=== PATIENT | female | born 1970 | race Caucasian/White ===

== ENCOUNTER 2020-01-05 11:55 | Emergency (ER) | payer MEDICAID ==
[2020-01-05 12:44] LABS: RAPID STREP SCREEN Negative (Negative)
--- NOTE | 2020-01-05 12:44 | ED Physician Documentation ---
PD HPI URI - Stated complaint Stated Complaint: SORE THROAT/FEVER - Chief complaint Chief Complaint: Heent - History obtained from History obtained from: Patient - History of Present Illness Timing - onset: Yesterday Timing duration: Days (2) Timing details: Gradual onset Pain level max: 0 Pain level now: 0 Associated symptoms: Fever (subjective), Nasal congestion, Rhinorrhea, Sore throat, Dry cough. No: Hemoptysis, Chest pain, Dyspnea, NVD Contributing factors: No: Travel, Immunocompromised, Unimmunized, COPD / asthma Improves by: Rest Worsened by: Activity, Breathing Recently seen: Not recently seen - Additional information Additional information: concerned about possible covid Review of Systems Constitutional: reports: Fever (subjective) Nose: reports: Rhinorrhea / runny nose, Congestion Skin: denies: Rash Musculoskeletal: denies: Neck pain, Back pain Neurologic: denies: Headache PD PAST MEDICAL HISTORY - Past Medical History Past Medical History: Yes GI: Hepatitis Psych: Depression, Anxiety, Schizophrenia, Panic attacks, Post traumatic stress disorder Other Past Medical History: Hep C - Past Surgical History Past Surgical History: Yes General: Other - Allergies Allergies/Adverse Reactions: Allergies Allergy/AdvReac Type Severity Reaction Status Date / Time Penicillins Allergy Unknown Verified 01/05/20 12:13 - Social History Does the pt smoke?: Yes Smoking Status: Current every day smoker Does the pt drink ETOH?: Yes ETOH Use: Wine Does the pt have substance abuse?: No - Immunizations Immunizations are current?: Yes - POLST Patient has POLST: No PD ED PE NORMAL - Vitals Vital signs reviewed: Yes - General General: Alert and oriented X 3, No acute distress, Well developed/nourished - HEENT HEENT: PERRL, Ears normal, Moist mucous membranes, Pharynx benign - Neck Neck: Supple, no meningeal sign, No adenopathy - Cardiac Cardiac: RRR, Strong equal pulses - Respiratory Respiratory: No respiratory distress, Clear bilaterally - Abdomen Abdomen: Soft, Non tender, Non distended - Derm Derm: Warm and dry, No rash - Extremities Extremities: No edema - Neuro Neuro: Alert and oriented X 3 - Psych Psych: Normal mood, Normal affect Results - Vitals Vitals: Vital Signs - 24 hr 01/05/20 01/05/20 12:08 12:16 Temperature 36.6 C 36.6 C Heart Rate 78 78 Respiratory 18 18 Rate Blood Pressure 102/55 L 102/55 L O2 Saturation 98 98 Oxygen O2 Source Room air PD MEDICAL DECISION MAKING - ED course Complexity details: reviewed results, re-evaluated patient, considered differential, d/w patient ED course: Patient is well-appearing, nontoxic. Afebrile. No hypoxia. No respiratory distress. Lungs are clear to auscultation bilaterally. No evidence of pneumonia clinically. Covid testing was performed and sent. We will have her follow-up with her doctor for further care. Patient counseled regarding signs and symptoms for which I believe and urgent re-evaluation would be necessary. Patient with good understanding of and agreement to plan and is comfortable going home at this time This document was made in part using voice recognition software. While efforts are made to proofread this document, sound alike and grammatical errors may occur. Departure - Departure Disposition: 01 Home, Self Care Clinical Impression: Viral upper respiratory infection Condition: Good Instructions: ED URI Viral Follow-Up: your,doctor as needed [Other] Comments: Return if you worsen. Your Covid test results should be available within 1 to 2 days. You should receive a phone call if they are positive. Follow-up with your doctor as needed for further care. You need to stay away from other people and self quarantine until your test results are back.
[2020-01-05 12:55] VITALS: BP 105/58
== END 2020-01-05 12:54 | disposition home or self-care (01) ==
LOC: ED 11:55
DX: J06.9 Acute upper respiratory infection, unspecified (principal); Z20.828 Contact with and (suspected) exposure to other viral communicable diseases; F17.200 Nicotine dependence, unspecified, uncomplicated; B19.20 Unspecified viral hepatitis C without hepatic coma
CPT/HCPCS: 87070; 87430; 99282; 99283

== ENCOUNTER 2020-06-09 02:05 | Emergency (ER) | payer MEDICAID ==
--- NOTE | 2020-06-09 03:31 | ED Physician Documentation ---
PD HPI MHE - Stated complaint Stated Complaint: MHE - Chief complaint Chief Complaint: MHE - History obtained from History obtained from: Patient - History of Present Illness Primary symptom: Other (see narrative below) - Additional information Additional information: patient presents to ED by private vehicle (drove self to ED). She reportedly went to triage desk and said someone had been following her and threatening her. She then left ED waiting area but subsequently returned and registered to be evaluated. On my HPI, patient is initially reluctant to talk to me. She requests discharge and tells me she feels fine. She eventually tells me that she was driving and perceived that someone in another vehicle was following her and that she felt threatened by this person's actions. I ask if she is certain someone was actually following her and she answers in the affirmative. She does not provide much other detail and again requests discharge home. I d/w patient that she has one previous ED visit, last year for COVID concerns, and that the ED chart indicates she has a h/o schizophrenia. She acknowledges that she has "mental health issues" (per patient), but says she is taking her medications as prescribed and she insists she was not hallucinating nor having delusions tonight. She denies SI/HI/AH/VH. She refuses physical exam aside from brief pupil exam Review of Systems Unable to obtain: Other (limited, as patient answers few of my questions, mostly redirects conversation to request to be discharged) Neurologic: denies: Headache Psychiatric: denies: Depressed, Suicidal PD PAST MEDICAL HISTORY - Past Medical History GI: Hepatitis Psych: Depression, Anxiety, Schizophrenia, Panic attacks, Post traumatic stress disorder - Past Surgical History Past Surgical History: Yes General: Other - Present Medications Home Medications: Ambulatory Orders Medication Instructions Recorded Confirmed Albuterol Sulfate [Proair 90 mcg IH 06/09/20 Respiclick] Alprazolam [Xanax Xr] 2 mg PO BID 06/09/20 06/09/20 Buprenorphine HCl/Naloxone HCl 2.5 film SL DAILY 06/09/20 06/09/20 [Suboxone 8 mg-2 mg Sl Film] Divalproex ER [Depakote ER] 250 mg PO DAILY 06/09/20 06/09/20 Risperidone [Risperdal] 2 mg PO DAILY 06/09/20 06/09/20 traZODone [Desyrel] 100 mg PO HS 06/09/20 06/09/20 - Allergies Allergies/Adverse Reactions: Allergies Allergy/AdvReac Type Severity Reaction Status Date / Time Penicillins Allergy Unknown Verified 01/05/20 12:13 - Social History Does the pt smoke?: Yes Smoking Status: Current every day smoker Does the pt drink ETOH?: Yes Does the pt have substance abuse?: No - Immunizations Immunizations are current?: Yes - POLST Patient has POLST: No PD ED PE NORMAL - Vitals Vital signs reviewed: Yes - General General: Alert and oriented X 3, No acute distress, Well developed/nourished - HEENT HEENT: PERRL - Neuro Neuro: Alert and oriented X 3 Eye Opening: Spontaneous Motor: Obeys Commands Verbal: Oriented GCS Score: 15 PD ED PE EXPANDED - Psych Psych: No: Tearful, Withdrawn, Agitated, Combative, Manic, Pressured speech Results - Vitals Vitals: Vital Signs - 24 hr 06/09/20 06/09/20 02:21 05:00 Temperature 36.9 C 36.7 C Heart Rate 91 87 Respiratory 16 16 Rate Blood Pressure 131/76 H 126/81 H O2 Saturation 99 97 Oxygen O2 Source Room air - Labs Labs: Laboratory Tests 06/09/20 04:40 Urine Color YELLOW Urine Clarity CLEAR Urine pH 6.0 Ur Specific [place] 1.025 Urine Protein NEGATIVE Urine Glucose (UA) NEGATIVE Urine Ketones NEGATIVE Urine Occult Blood NEGATIVE Urine Nitrite NEGATIVE Urine Bilirubin NEGATIVE Urine Urobilinogen 0.2 (NORMAL) Ur Leukocyte Esterase NEGATIVE Ur Microscopic Review NOT INDICATED Urine Culture Comments NOT INDICATED Urine Opiates Screen NEGATIVE Ur Oxycodone Screen NEGATIVE Urine Methadone Screen NEGATIVE Ur Propoxyphene Screen NEGATIVE Ur Barbiturates Screen NEGATIVE Ur Tricyclics Screen NEGATIVE Ur Phencyclidine Scrn NEGATIVE Ur Amphetamine Screen NEGATIVE U Methamphetamines Scrn NEGATIVE U Benzodiazepines Scrn POSITIVE H Urine Cocaine Screen NEGATIVE U Cannabinoids Screen NEGATIVE PD MEDICAL DECISION MAKING - ED course Complexity details: considered differential, d/w patient ED course: patient presents with possible delusion of being followed but she provides paucity of information, repeatedly insists she feels well and requesting discharge. I do not have sufficient information to indicate patient is imminent danger to self or others and thus cannot hold patient in ED against her wishes. Initially, in anticipation of possible MHE or telepsych evaluation, blood test and UA were ordered, but patient refused to submit to blood tests (she did provide urine sample prior to being discharged). I offered to obtain telepsych consult, explaining that she might be having visual hallucination and/or delusions, but she declines this and insists she was neither hallucinating nor having delusion. She is AAOx3 on my evaluation Departure - Departure Disposition: 01 Home, Self Care Clinical Impression: Anxiety Condition: Good Instructions: ED Symptoms No Dx Discharge Date/Time: 06/09/20 05:05
[2020-06-09 04:42] LABS: MUDS CUTOFF CONCENTRATIONS CUTOFF CONC BELOW:
[2020-06-09 04:43] LABS: BILIRUBIN,URINE NEGATIVE (NEGATIVE); CLARITY,URINE CLEAR (CLEAR); GLUCOSE, URINE (UA) NEGATIVE (NEGATIVE); KETONES,URINE (UA) NEGATIVE (NEGATIVE); LEUKOCYTE ESTERASE, URINE NEGATIVE (NEGATIVE); NITRITE,URINE NEGATIVE (NEGATIVE); OCCULT BLOOD,URINE NEGATIVE (NEGATIVE); PROTEIN,URINE NEGATIVE (NEGATIVE); UROBILINOGEN,URINE 0.2 (NORMAL) E.U./dL (NORMAL)
[2020-06-09 04:53] LABS: AMPHETAMINE SCREEN,URINE NEGATIVE (NEGATIVE); BARBITURATE SCREEN,UR NEGATIVE (NEGATIVE); BENZODIAZEPINES SCREEN, URINE POSITIVE (NEGATIVE); COCAINE SCREEN URINE NEGATIVE (NEGATIVE); METHADONE SCREEN, URINE NEGATIVE (NEGATIVE); METHAMPHETAMINES SCREEN, URINE NEGATIVE (NEGATIVE); OPIATE SCREEN, URINE NEGATIVE (NEGATIVE); OXYCODONE SCREEN, URINE NEGATIVE (NEGATIVE); PROPOXYPHENE SCREEN, URINE NEGATIVE (NEGATIVE); THC CANNABINOID SCREEN, URINE NEGATIVE (NEGATIVE); TRICYCLIC ANTIDEPRESSANT,URINE NEGATIVE (NEGATIVE)
[2020-06-09 05:06] VITALS: BP 126/81
== END 2020-06-09 05:05 | disposition home or self-care (01) ==
LOC: ED 02:05
DX: F41.9 Anxiety disorder, unspecified (principal); F17.200 Nicotine dependence, unspecified, uncomplicated
CPT/HCPCS: 80053; 80306; 80307; 80320; 80329; 81001; 81003; 83690; 84443; 85025; 87086; 99283

== ENCOUNTER 2022-05-01 12:07 | Emergency (ER) | payer MEDICAID ==
[2022-05-01 12:19] VITALS: BP 146/68
--- NOTE | 2022-05-01 12:33 | ED Physician Documentation ---
PD HPI WOUND RECHECK - Stated complaint Stated Complaint: R HAND INFECTION - Chief complaint Chief Complaint: Wound - Histroy obtained from History obtained from: Patient - Additional information Additional information: For about a month she has had multiple draining lesions on both hands and one on the chin. No fevers or systemic symptoms. Denies drug use. PD PAST MEDICAL HISTORY - Past Medical History GI: Hepatitis Psych: Depression, Anxiety, Schizophrenia, Panic attacks, Post traumatic stress disorder - Past Surgical History Past Surgical History: Yes General: Other - Present Medications Home Medications: Ambulatory Orders Medication Instructions Recorded Confirmed ALPRAZolam [Xanax Xr] 2 mg PO BID 06/09/20 06/09/20 Albuterol Sulfate [Proair 90 mcg IH 06/09/20 Respiclick] Buprenorphine HCl/Naloxone HCl 2.5 film SL DAILY 06/09/20 06/09/20 [Suboxone 8 mg-2 mg Sl Film] Divalproex ER [Depakote ER] 250 mg PO DAILY 06/09/20 06/09/20 risperiDONE [Risperdal] 2 mg PO DAILY 06/09/20 06/09/20 traZODone [Desyrel] 100 mg PO HS 06/09/20 06/09/20 Chlorhexidine Gluconate [Hibiclens] 20 ml TP BID #2 ea 05/01/22 Sulfamethox/Trimeth 800/160 1 each PO BID #20 tablet 05/01/22 [Bactrim Ds 800/160] - Allergies Allergies/Adverse Reactions: Allergies Allergy/AdvReac Type Severity Reaction Status Date / Time Penicillins Allergy Unknown Verified 05/01/22 12:18 - Social History Does the pt smoke?: Yes Smoking Status: Current every day smoker Does the pt drink ETOH?: Yes Does the pt have substance abuse?: No - Immunizations Immunizations are current?: Yes - POLST Patient has POLST: No PD ED PE NORMAL - Vitals Vital signs reviewed: Yes - General General: Alert and oriented X 3, No acute distress - Extremities Extremities: Other (Cellulitic scabs over the dorsum of the right hand and a purulent lesion on the dorsum of the left thumb that was cultured during exam. There is a scab on the chin, no purulence there.) - Neuro Neuro: Alert and oriented X 3, Normal speech Results - Vitals Vitals: Vital Signs - 24 hr 05/01/22 12:14 Temperature 36.3 C L Heart Rate 69 Respiratory 16 Rate Blood Pressure 146/68 H O2 Saturation 98 Oxygen O2 Source Room air PD Medical Decision Making - ED course ED course: 51-year-old woman with what looks like a staphylococcal skin infection. Will cover with Bactrim and Hibiclens. No nasal lesions. Culture pending. Departure - Departure Disposition: 01 Home, Self Care Clinical Impression: Staph skin infection Condition: Good Record reviewed to determine appropriate education?: Yes Instructions: ED Staph Infec Abx Tx Only Prescriptions: Sulfamethox/Trimeth 800/160 [Bactrim Ds 800/160] 1 each PO BID #20 tablet Chlorhexidine Gluconate [Hibiclens] 20 ml TP BID #2 ea Comments: You were seen today for multiple infected looking lesions on the hands mostly. This is consistent with staph infection, we are checking for MRSA with a culture. We are performing a wound culture, the results should be done in 48-72 hours. If antibiotic change is necessary we will call you. Return if worse in the meantime, especially if you develop increased pain, fevers, cannot keep down the medication. Otherwise follow-up with your physician in approximately 2-3 days.
== END 2022-05-01 12:41 | disposition home or self-care (01) ==
LOC: ED 12:07
DX: L08.89 Other specified local infections of the skin and subcutaneous tissue (principal); B95.8 Unspecified staphylococcus as the cause of diseases classified elsewhere; F17.200 Nicotine dependence, unspecified, uncomplicated
CPT/HCPCS: 87070; 87077; 87181; 87205; 99283